=== PATIENT | male | born 1960 | race African-American/Black ===

== ENCOUNTER 2018-04-12 15:14 | Emergency (ER) | payer MEDICAID, MEDICARE ==
[~2018-04-12] VITALS: Ht 188 cm; Wt 104.0 kg
[2018-04-12 15:53] VITALS: BP 139/82
[2018-04-12] MEDS ORDERED: DEXAMETHASONE 10 MG/ML VIAL IM ONE (18:30)
== END 2018-04-12 18:54 | disposition home or self-care (01) ==
LOC: ER 17:02
DX: G89.29 Other chronic pain (principal); M06.812 Other specified rheumatoid arthritis, left shoulder
CPT/HCPCS: 96372; 99283; J1100; A4565

== ENCOUNTER 2019-12-26 10:53 | Emergency (ER) | payer MEDICARE, MEDICAID ==
[~2019-12-26] VITALS: Ht 182.9 cm; Wt 105.0 kg
[2019-12-26 11:07] VITALS: BP 154/69
[2019-12-26] MEDS ORDERED: KETOROLAC 30MG/ML VIAL IM ONE (11:30)
== END 2019-12-26 12:09 | disposition home or self-care (01) ==
LOC: ER 11:56
DX: M06.9 Rheumatoid arthritis, unspecified (principal)
CPT/HCPCS: 96372; 99283; J1885

== ENCOUNTER 2020-02-18 11:23 | Emergency (ER) | payer MEDICARE, MEDICAID ==
[~2020-02-18] VITALS: Ht 185.4 cm; Wt 104.0 kg
[2020-02-18] MEDS ORDERED: KETOROLAC 60MG/2ML VIAL IM ONE (13:30)
[2020-02-18 15:50] VITALS: BP 138/92
== END 2020-02-18 15:51 | disposition home or self-care (01) ==
LOC: ER 11:40
DX: M25.562 Pain in left knee (principal)
CPT/HCPCS: 73562; 96372; 99283; J1885

== ENCOUNTER 2020-04-05 10:17 | Emergency (ER) | payer MEDICARE, MEDICAID ==
[~2020-04-05] VITALS: Ht 185.4 cm; Wt 91.0 kg
[2020-04-05 10:49] VITALS: BP 132/76
== END 2020-04-05 10:49 | disposition home or self-care (01) ==
LOC: ER 10:17
DX: M25.562 Pain in left knee (principal)
CPT/HCPCS: 99281; 99282